=== PATIENT | male | born 1985 | race Two or more races ===

== ENCOUNTER 2022-04-17 15:39 | Emergency (ER) | payer BC, MEDICAID ==
[~2022-04-17] VITALS: Ht 185.4 cm; Wt 150.0 kg
[2022-04-17 16:30] VITALS: BP 162/89
[2022-04-17] MEDS ORDERED: HYDROcodone-ACET 10/325MG TAB PO ONE (16:45)
[2022-04-17] MEDS ORDERED: KETOROLAC TROMETH 60MG/2ML VIAL IM ONE (16:45)
[2022-04-17] MEDS ORDERED: IBUP800T27 PO (17:13)
[2022-04-17] MEDS ORDERED: TRAM-297 PO (17:13)
== END 2022-04-17 17:45 | disposition home or self-care (01) ==
LOC: ER 15:39
DX: M23.92 Unspecified internal derangement of left knee (principal); Z79.1 Long term (current) use of non-steroidal anti-inflammatories (NSAID); Z79.899 Other long term (current) drug therapy; Z88.8 Allergy status to other drugs, medicaments and biological substances
CPT/HCPCS: 96372; 99283; J1885

== ENCOUNTER 2023-04-15 09:58 | Emergency (ER) | payer MEDICAID ==
[~2023-04-15] VITALS: Ht 185.4 cm; Wt 165.5 kg
[~2023-04-15 09:58] MED LIST: IBUP-1456 PO; TRAM-297 PO
[2023-04-15 10:33] VITALS: BP 163/94; PULSE 103; RESP 22; TEMP 98.9; O2SAT 99
[2023-04-15] MEDS: KETOROLAC TROMETH 60MG/2ML VIAL IM ONE (10:53)
[2023-04-15] MEDS ORDERED: METH-1182 PO (11:00)
[2023-04-15] MEDS ORDERED: LISI20TA56 PO (11:07)
== END 2023-04-15 11:09 | disposition home or self-care (01) ==
LOC: ER 09:58
DX: M54.41 Lumbago with sciatica, right side (principal); I10 Essential (primary) hypertension; Z76.0 Encounter for issue of repeat prescription; Z88.6 Allergy status to analgesic agent
CPT/HCPCS: 72100; 96372; 99283; J1885

== ENCOUNTER 2023-10-22 08:32 | Emergency (ER) | payer MEDICAID ==
[~2023-10-22] VITALS: Ht 185.4 cm; Wt 163.7 kg
[~2023-10-22 08:32] MED LIST changes: +LISI20TA56 PO; +METH-1182 PO
[2023-10-22] MEDS ORDERED: CEPH500C PO (08:57)
[2023-10-22] MEDS ORDERED: TOB03OS OP (08:57)
[2023-10-22 09:04] VITALS: BP 168/98; PULSE 16; RESP 16; O2SAT 97
[2023-10-22] MEDS: LISINOPRIL 20 MG TAB PO ONE (09:10)
== END 2023-10-22 09:11 | disposition home or self-care (01) ==
LOC: ER 08:32
DX: H00.024 Hordeolum internum left upper eyelid (principal); I10 Essential (primary) hypertension; Z76.0 Encounter for issue of repeat prescription; Z88.6 Allergy status to analgesic agent

== ENCOUNTER 2023-12-19 07:46 | Emergency (ER) | payer SELFPAY ==
[~2023-12-19] VITALS: Ht 185.4 cm; Wt 75.0 kg
[~2023-12-19 07:46] MED LIST changes: +CEPH500C PO; +TOB03OS OP
[2023-12-19] MEDS ORDERED: NAPR-746 PO (08:27)
[2023-12-19] MEDS ORDERED: CEPH500C PO (08:27)
[2023-12-19] MEDS ORDERED: BACDST PO (08:27)
[2023-12-19 08:34] VITALS: BP 176/105; PULSE 97; RESP 16; TEMP 98.6; O2SAT 97
== END 2023-12-19 08:38 | disposition home or self-care (01) ==
LOC: ER 07:46
DX: L02.214 Cutaneous abscess of groin (principal); I10 Essential (primary) hypertension; Z88.5 Allergy status to narcotic agent; Z79.899 Other long term (current) drug therapy

== ENCOUNTER 2023-12-24 12:56 | Inpatient (IN) | payer MEDICAID ==
[~2023-12-24] VITALS: Ht 185.4 cm; Wt 165.1 kg
[~2023-12-24 12:56] MED LIST changes: +BACDST PO; +NAPR-746 PO
[2023-12-24] MEDS: cefTRIAXone 1GM/50ML D5W 50 ML IV ONE (13:45)
[2023-12-24] MEDS: KETOROLAC TROMETH 30 MG/ML 1ML VIAL IV ONE (13:45)
[2023-12-24 14:13] LABS: Basophils # (auto) 0.1 10 ^3/uL (0-0.2); Basophils % (auto) 0.8 % (0.0-2.0); Eosinophils # (auto) 0.3 10 ^3/uL (0-0.8); Eosinophils % (auto) 1.6 % (0.0-7.0); Hematocrit 45.4 % (41.0-53.0); Hemoglobin 14.8 g/dL (13.5-17.5); Lymphocytes % (auto) 12.8 % (10.0-50.0); Mean Corpuscular Hemoglobin 27.6 pg (28.0-32.0); Mean Corpuscular Hgb Conc. 32.5 g/dL (32.0-36.0); Monocytes # (auto) 1.3 10 ^3/uL (0-1.3); Monocytes % (auto) 7.9 % (0.0-12.0); Neutrophils # (auto) 12.2 10 ^3/uL (1.6-8.6); Neutrophils % (auto) 76.9 % (37.0-80.0); Nucleated Red Blood Cells % 0.1 %; Platelet Count (auto) 285 10^3/uL (140-450); Red Blood Cells 5.34 10^6/uL (4.5-5.90); Red Cell Distribution Width 16.1 % (11.8-14.3); White Blood Cell 15.9 10^3/uL (4.4-10.8)
[2023-12-24 14:30] LABS: Chloride 107 mmol/L (98-107); Potassium 4.3 mmol/L (3.5-5.1); Sodium 138 mmol/L (136-145)
[2023-12-24 14:31] LABS: Anion Gap 6 (5-15); Calcium 9.7 mg/dL (8.7-10.4); Carbon Dioxide 25 mmol/L (20-31)
[2023-12-24] MEDS: CLINDAMYCIN 900MG IV 50 ML IV ONE (14:32)
[2023-12-24 14:36] LABS: BUN/Creatinine Ratio 10.4 (10.0-20.0); Blood Urea Nitrogen 11 mg/dL (9-23); Glucose 207 mg/dL (74-106)
[2023-12-24] MEDS ORDERED: hydrALAZINE HCL 20 MG/ML VL IV PRN (22:45)
[2023-12-24] MEDS ORDERED: NITROGLYCERIN 0.4 MG SL TAB SL PRN (22:45)
[2023-12-24] MEDS ORDERED: ONDANSETRON HCL 4 MG/2 ML VIAL IV PRN (22:45)
[2023-12-24] MEDS ORDERED: ACETAMINOPHEN 325 MG TAB PO PRN (22:45)
[2023-12-24] MEDS ORDERED: MORPHINE SULFATE INJ 2 MG/ml SYRG IV PRN ×2 (22:45)
[2023-12-24] MEDS ORDERED: DOCUSATE SOD 100 MG CAP PO PRN (22:45)
[2023-12-24] MEDS: SODIUM CHLORIDE 0.9% 1,000 ML IV SCH (23:13)
[2023-12-25] MEDS ORDERED: DEXTROSE (50%) 50ML SYRG IV PRN (03:15)
[2023-12-25 05:00] VITALS: BP 142/84; PULSE 90; RESP 18; TEMP 97.7; O2SAT 97
[2023-12-25 06:16] LABS: Basophils # (auto) 0.1 10 ^3/uL (0-0.2); Basophils % (auto) 1.1 % (0.0-2.0); Eosinophils # (auto) 0.4 10 ^3/uL (0-0.8); Eosinophils % (auto) 3.3 % (0.0-7.0); Hematocrit 41.8 % (41.0-53.0); Hemoglobin 13.8 g/dL (13.5-17.5); Lymphocytes # (auto) 2.1 10 ^3/uL (0.4-5.4); Lymphocytes % (auto) 16.5 % (10.0-50.0); Mean Corpuscular Hemoglobin 28.2 pg (28.0-32.0); Mean Corpuscular Hgb Conc. 32.9 g/dL (32.0-36.0); Mean Corpuscular Volume 85.6 fL (80.0-100.0); Monocytes # (auto) 1.2 10 ^3/uL (0-1.3); Monocytes % (auto) 9.6 % (0.0-12.0); Neutrophils % (auto) 69.5 % (37.0-80.0); Platelet Count (auto) 280 10^3/uL (140-450); Red Blood Cells 4.89 10^6/uL (4.5-5.90); Red Cell Distribution Width 16.1 % (11.8-14.3); White Blood Cell 12.9 10^3/uL (4.4-10.8)
[2023-12-25] MEDS: CLINDAMYCIN 600MG IV 50 ML IV SCH (06:28)
[2023-12-25] MEDS: ACCU-CHEK COMFORT CURVE STRIP VI SCH (06:34)
[2023-12-25 06:39] LABS: Alanine Aminotransferase 19 U/L (7-40); Albumin 3.9 g/dL (3.2-4.8); Alkaline Phosphatase 108 U/L (46-116); Anion Gap 5 (5-15); Aspartate Aminotransferase 8 U/L (13-40); Blood Urea Nitrogen 12 mg/dL (9-23); Calcium 9.3 mg/dL (8.7-10.4); Carbon Dioxide 23 mmol/L (20-31); Chloride 108 mmol/L (98-107); Glucose 166 mg/dL (74-106); Potassium 4.5 mmol/L (3.5-5.1); Sodium 136 mmol/L (136-145)
[2023-12-25 06:40] LABS: Bilirubin, Total 0.4 mg/dL (0.2-1.0); Total Protein 6.6 g/dL (5.7-8.2)
[2023-12-25] MEDS: InsuLIN REG 1unit/0.01ml Soln (100units/ml) SC SCH ×2 (06:44→22:54)
[2023-12-25 08:28] VITALS: BP_SYST 145; BP_SYST 156; BP_DIAS 76; BP_DIAS 91; PULSE 78; PULSE 88; RESP 18; RESP 20; TEMP 98.1; TEMP 98.7; O2SAT 96; O2SAT 98
[2023-12-25] MEDS: cefTRIAXone 1GM/50ML D5W 50 ML IV SCH (09:40)
[2023-12-25] MEDS: ZINC SULFATE 220mg CAP or TAB PO SCH (09:41)
[2023-12-25] MEDS: ASCORBIC ACID 500 MG TAB PO SCH (09:41)
[2023-12-25 11:27] VITALS: BP 133/77; PULSE 81; RESP 20; TEMP 98.2; O2SAT 95
[2023-12-25 16:57] VITALS: BP 134/70; PULSE 82; RESP 19; TEMP 98.1; O2SAT 94
[2023-12-25] MEDS ORDERED: HYDROcodone-ACET 10/325MG TAB PO PRN (18:00)
[2023-12-25] MEDS ORDERED: MORPHINE SULFATE INJ 2 MG/ml SYRG IV PRN (18:00)
[2023-12-25] MEDS ORDERED: VANCOMYCIN PER PHARMACY 0 MG IV SCH (18:00)
[2023-12-25] MEDS: VANCOMYCIN 1GM/200ML PREMIX 200 ML IV SCH (18:00)
[2023-12-25] MEDS ORDERED: BUPIVACAINE HCL 0 ML ONE (20:58)
[2023-12-25] MEDS ORDERED: BUPIVACAINE 0.5% P/F INJ 10 ML VIAL ONE (20:59)
[2023-12-25] MEDS ORDERED: fentaNYL CITRATE 100 MCG/2 ML VL ONE (21:02)
[2023-12-25] MEDS ORDERED: PROPOFOL 10 MG/ML 20 ML IV ONE (21:03)
[2023-12-25] MEDS ORDERED: MEPERIDINE HCL (50 MG/ML) 1 ML VIAL ONE (21:24)
[2023-12-25] MEDS ORDERED: ONDANSETRON HCL 4 MG/2 ML VIAL ONE (21:26)
[2023-12-25] MEDS ORDERED: DexAMETHasone SOD PHOS 10MG/1ML VIAL INJ ONE (21:26)
[2023-12-25] MEDS: BUPIVACAINE 0.5% P/F INJ 10 ML VIAL ONE (21:28)
[2023-12-25] MEDS: LIDOCAINE 1% HCL (LOCAL ANESTH.) INJ 20ML MDV ONE (21:28)
[2023-12-25 21:49] VITALS: PULSE 108; RESP 17; O2SAT 98
[2023-12-25] MEDS ORDERED: ONDANSETRON HCL 4 MG/2 ML VIAL IV ONE (22:00)
[2023-12-25] MEDS ORDERED: MEPERIDINE HCL (25 MG/ML) 1ML VIAL IV PRN (22:00)
[2023-12-25] MEDS ORDERED: ACETAMINOPHEN IV 1000 MG/100ML (10MG/ML) IV PRN (22:00)
[2023-12-25] MEDS ORDERED: HYDROmorphone HCL 2 MG/ML VL/or syr IV PRN (22:00)
[2023-12-25 22:05] VITALS: PULSE 105; RESP 20; O2SAT 94
[2023-12-25] MEDS: PIPERACILLIN-TAZOB 3.375GM 100 ML IV SCH (22:49)
[2023-12-25] MEDS: HYDROcodone-ACET 5/325MG TAB PO PRN (22:57)
[2023-12-26 05:00] VITALS: BP_SYST 100; BP_SYST 105; BP_SYST 123; BP_SYST 129; BP_DIAS 68; BP_DIAS 71; BP_DIAS 83; PULSE 91; PULSE 93; RESP 17; TEMP 98.1; TEMP 98.3; O2SAT 92; O2SAT 94
[2023-12-26] MEDS: PANTOPRAZOLE 40 MG TAB PO SCH (06:30)
[2023-12-26 07:18] LABS: Basophils # (auto) 0 10 ^3/uL (0-0.2); Basophils % (auto) 0.2 % (0.0-2.0); Eosinophils # (auto) 0 10 ^3/uL (0-0.8); Hematocrit 43.4 % (41.0-53.0); Lymphocytes % (auto) 7.3 % (10.0-50.0); Mean Corpuscular Hemoglobin 27.7 pg (28.0-32.0); Mean Corpuscular Hgb Conc. 32.3 g/dL (32.0-36.0); Mean Corpuscular Volume 85.8 fL (80.0-100.0); Monocytes # (auto) 0.3 10 ^3/uL (0-1.3); Monocytes % (auto) 2.2 % (0.0-12.0); Neutrophils # (auto) 12.3 10 ^3/uL (1.6-8.6); Neutrophils % (auto) 90.3 % (37.0-80.0); Platelet Count (auto) 329 10^3/uL (140-450); Red Blood Cells 5.06 10^6/uL (4.5-5.90); Red Cell Distribution Width 16.4 % (11.8-14.3); White Blood Cell 13.6 10^3/uL (4.4-10.8)
[2023-12-26 09:00] VITALS: BP 143/67; PULSE 100; RESP 20; TEMP 98.1; O2SAT 95
[2023-12-26] MEDS: ENOXAPARIN SOD 40 MG/0.4 ML SYRINGE SC SCH (09:58)
[2023-12-26 13:00] VITALS: BP 145/72; PULSE 85; RESP 20; TEMP 97.9; O2SAT 95
[2023-12-26] MEDS: VANCOMYCIN 750mg/150ml 150 ML IV SCH (13:21)
[2023-12-26] MEDS ORDERED: BACDST PO (14:32)
[2023-12-26] MEDS ORDERED: HYDR-4902 PO (14:32)
[2023-12-26] MEDS ORDERED: NALO4SPR2 (14:40)
[2023-12-26] MEDS ORDERED: METF-370 PO (14:40)
[2023-12-26 16:33] VITALS: BP 145/72; PULSE 85; RESP 20; TEMP 97.9; O2SAT 95
[2023-12-26 17:00] VITALS: BP 140/83; PULSE 87; RESP 20; TEMP 98; O2SAT 92
[2023-12-27] MEDS ORDERED: glipiZIDE 5 MG TAB PO SCH (07:00)
== END 2023-12-26 19:17 | disposition home or self-care (01) | DRG 364 ==
LOC: ER 12:56 → OVERFLOW 22:38 → WEST WING 22:42
PROVIDERS: ADMIT Nurse Practitioner Family; ATTEND Internal Medicine
PROC: 0J9C0ZZ Drainage of Pelvic Region Subcutaneous Tissue and Fascia, Open Approach (ICD-10-PCS; principal; 2023-12-25 21:07)
DX: L02.214 Cutaneous abscess of groin (principal); E11.9 Type 2 diabetes mellitus without complications; Z68.42 Body mass index [BMI] 45.0-49.9, adult; L03.314 Cellulitis of groin; I10 Essential (primary) hypertension; F17.210 Nicotine dependence, cigarettes, uncomplicated; E66.01 Morbid (severe) obesity due to excess calories
CPT/HCPCS: 36415; 80048; 80053; 80202; 82565; 82962; 83036; 83605; 85025; 87070; 87075; 87076; 87077; 87205; G0378; J0131; J1100; J1815; J1885; J2003; J2405; J2543; J2704; J3490